=== PATIENT | male | born 1940 | race Asian ===

== ENCOUNTER 2022-02-16 19:16 | Emergency (ER) | payer OTHER ==
[~2022-02-16] VITALS: Ht 167.6 cm; Wt 77.0 kg
[~2022-02-16 19:16] MED LIST: ASPI-1444 PO; ATOR20TA86 PO; BISO5TAB33 PO; CALC600T2 PO; DUTA.5 PO; FURO20 PO; LOSA-382 PO; METF-1211 PO; MULT1TAB PO; POTA25TA7 PO; PRAM0.258 PO; TERA5CAP4 PO
[2022-02-16] MEDS ORDERED: ATOR10TA PO (19:33)
[2022-02-16] MEDS ORDERED: DUTA0.5C37 PO (19:41)
[2022-02-16] MEDS ORDERED: MULT-1259 PO (19:41)
[2022-02-16] MEDS ORDERED: METF-81 PO (19:41)
[2022-02-16] MEDS ORDERED: CHOL400T4 PO (19:41)
[2022-02-16] MEDS ORDERED: CARV25TA32 PO (19:41)
[2022-02-16 20:23] LABS: BASOPHILS % (AUTO) 0.7 % (0.0-2.0); EOSINOPHILS % (AUTO) 3.7 % (1.0-6.0); HEMATOCRIT 42.1 % (41-53); HEMOGLOBIN 13.9 g/dL (13.5-17.5); LYMPHOCYTES # (AUTO) 2.3 K/uL (1.0-4.8); LYMPHOCYTES % (AUTO) 39.3 % (22.0-44.0); MEAN CORPUSCULAR HEMOGLOBIN 31.8 pg (26.0-34.0); MEAN CORPUSCULAR VOLUME 96 fL (80-100); MONOCYTES # (AUTO) 0.4 K/uL (0.1-1.0); MONOCYTES % (AUTO) 7.1 % (2.0-9.0); NEUTROPHILS # (AUTO) 2.9 K/uL (1.8-7.7); NEUTROPHILS % (AUTO) 49.2 % (40.0-70.0); PLATELET COUNT (AUTO) 125 K/uL (150-450); RED BLOOD CELL COUNT(AUTO) 4.36 MIL/uL (4.50-5.90)
[2022-02-16 20:33] LABS: ANION GAP 4 mmol/L (8-16); CARBON DIOXIDE 29 mmol/L (22-29); CHLORIDE 105 mmol/L (98-107); CREATININE 1.02 mg/dL (0.60-1.30); GLUCOSE,RANDOM 111 mg/dL (70-110); POTASSIUM 3.9 mmol/L (3.5-5.1); SODIUM SERUM 138 mmol/L (136-145); UREA NITROGEN, BLOOD 15 mg/dL (7-18)
[2022-02-16 20:38] VITALS: BP 214/88
[2022-02-16 20:38] LABS: GLOMERULAR FILTR. RATE CALC > 60 mL/min (>60)
[2022-02-16 20:39] LABS: ALANINE AMINOTRANSFERASE 22 U/L (12-78); ALBUMIN 3.9 g/dL (3.4-5.0); ALKALINE PHOSPHATASE 108 U/L (46-116); ASPARTATE AMINOTRANSFERASE 18 U/L (15-37); BILIRUBIN,TOTAL 0.6 mg/dL (0.1-1.0); TOTAL PROTEIN, SERUM 7.1 g/dL (6.4-8.2)
== END 2022-02-16 20:57 | disposition home or self-care (01) ==
LOC: EMS 19:18
DX: I10 Essential (primary) hypertension (principal); E11.9 Type 2 diabetes mellitus without complications; N40.0 Benign prostatic hyperplasia without lower urinary tract symptoms; G20 Parkinson's disease; Z98.890 Other specified postprocedural states
CPT/HCPCS: 71045; 80053; 84484; 85025; 93005; 99285; 36415-L1; 36415-TC

== ENCOUNTER 2022-02-18 13:22 | Emergency (ER) | payer MEDICARE, OTHER ==
[~2022-02-18] VITALS: Ht 165.1 cm; Wt 81.8 kg
[~2022-02-18 13:22] MED LIST changes: +ATOR10TA PO; -ATOR20TA86 PO; -BISO5TAB33 PO; -CALC600T2 PO; +CARV25TA32 PO; +CHOL400T4 PO; -DUTA.5 PO; +DUTA0.5C37 PO; -FURO20 PO; -METF-1211 PO; +METF-81 PO; +MULT-1259 PO; -MULT1TAB PO; -POTA25TA7 PO; -PRAM0.258 PO
[2022-02-18 15:04] LABS: BASOPHILS % (AUTO) 0.4 % (0.0-2.0); EOSINOPHILS % (AUTO) 1.6 % (1.0-6.0); HEMATOCRIT 43.6 % (41-53); HEMOGLOBIN 14.6 g/dL (13.5-17.5); LYMPHOCYTES # (AUTO) 2.1 K/uL (1.0-4.8); LYMPHOCYTES % (AUTO) 26.2 % (22.0-44.0); MEAN CORPUSCULAR HEMOGLOBIN 32.4 pg (26.0-34.0); MEAN CORPUSCULAR HGB CONC 33.6 G/dL (31.0-37.0); MEAN CORPUSCULAR VOLUME 97 fL (80-100); MONOCYTES # (AUTO) 0.4 K/uL (0.1-1.0); MONOCYTES % (AUTO) 4.8 % (2.0-9.0); NEUTROPHILS # (AUTO) 5.4 K/uL (1.8-7.7); PLATELET COUNT (AUTO) 130 K/uL (150-450); RED BLOOD CELL COUNT(AUTO) 4.51 MIL/uL (4.50-5.90); RED CELL DISTRIBUTION WIDTH 13.9 % (11.5-14.5)
[2022-02-18 15:08] LABS: ANION GAP 9 mmol/L (8-16); CALCIUM, TOTAL 9.4 mg/dL (8.8-10.5); CARBON DIOXIDE 27 mmol/L (22-29); CHLORIDE 102 mmol/L (98-107); CREATININE 1.01 mg/dL (0.60-1.30); GLUCOSE,RANDOM 122 mg/dL (70-110); POTASSIUM 3.8 mmol/L (3.5-5.1); SODIUM SERUM 138 mmol/L (136-145); UREA NITROGEN, BLOOD 19 mg/dL (7-18)
[2022-02-18 15:09] LABS: GLOMERULAR FILTR. RATE CALC > 60 mL/min (>60)
[2022-02-18 15:14] LABS: ALANINE AMINOTRANSFERASE 22 U/L (12-78); ALKALINE PHOSPHATASE 107 U/L (46-116); ASPARTATE AMINOTRANSFERASE 20 U/L (15-37); BILIRUBIN,TOTAL 0.8 mg/dL (0.1-1.0); TOTAL PROTEIN, SERUM 7.3 g/dL (6.4-8.2)
[2022-02-18 15:28] LABS: B-TYPE NATRIURETIC PEPTIDE 24 pg/mL (0-100)
[2022-02-18 16:30] VITALS: BP 146/77
== END 2022-02-18 17:01 | disposition home or self-care (01) ==
LOC: EMS 13:46
DX: R55 Syncope and collapse (principal); E11.9 Type 2 diabetes mellitus without complications; I11.9 Hypertensive heart disease without heart failure; N40.0 Benign prostatic hyperplasia without lower urinary tract symptoms; G20 Parkinson's disease; Z98.890 Other specified postprocedural states
CPT/HCPCS: 71045; 80053; 82962; 83880; 84484; 85025; 93005; 99285; 36415-L1; 36415-TC

== ENCOUNTER 2022-05-07 14:46 | Inpatient (IN) | payer MEDICARE, OTHER ==
[~2022-05-07] VITALS: Ht 167.6 cm; Wt 69.0 kg
[2022-05-07 15:50] LABS: CALCIUM, TOTAL 8.8 mg/dL (8.8-10.5); CREATININE 1.25 mg/dL (0.60-1.30); POTASSIUM 4.4 mmol/L (3.5-5.1)
[2022-05-07 15:56] LABS: ALBUMIN 3.6 g/dL (3.4-5.0); BASOPHILS % (AUTO) 0.4 % (0.0-2.0); BILIRUBIN,TOTAL 0.5 mg/dL (0.1-1.0); EOSINOPHILS % (AUTO) 1.8 % (1.0-6.0); HEMATOCRIT 38.3 % (41-53); HEMOGLOBIN 12.5 g/dL (13.5-17.5); LYMPHOCYTES # (AUTO) 2.1 K/uL (1.0-4.8); LYMPHOCYTES % (AUTO) 25.6 % (22.0-44.0); MEAN CORPUSCULAR HEMOGLOBIN 31.2 pg (26.0-34.0); MEAN CORPUSCULAR HGB CONC 32.7 G/dL (31.0-37.0); MEAN CORPUSCULAR VOLUME 95 fL (80-100); MONOCYTES # (AUTO) 0.4 K/uL (0.1-1.0); MONOCYTES % (AUTO) 4.8 % (2.0-9.0); NEUTROPHILS # (AUTO) 5.6 K/uL (1.8-7.7); NEUTROPHILS % (AUTO) 67.4 % (40.0-70.0); PLATELET COUNT (AUTO) 118 K/uL (150-450); RED BLOOD CELL COUNT(AUTO) 4.02 MIL/uL (4.50-5.90); RED CELL DISTRIBUTION WIDTH 13.2 % (11.5-14.5); TOTAL PROTEIN, SERUM 6.8 g/dL (6.4-8.2)
[2022-05-07] MEDS ORDERED: DEXTROSE 50%-WATER 25 GM/50 ML SYRINGE IVP PRN (17:00)
[2022-05-07] MEDS ORDERED: INSULIN LISPRO 100 UNITS/ML SQ PRN (17:00)
[2022-05-07] MEDS ORDERED: ACETAMINOPHEN 325 MG TABLET PO PRN (17:00)
[2022-05-07] MEDS ORDERED: LORA10TA7 PO (17:09)
[2022-05-07] MEDS ORDERED: SERT-438 PO (17:09)
[2022-05-07] MEDS ORDERED: DONE-51 PO (17:09)
[2022-05-07] MEDS ORDERED: PRAM0.258 PO (17:09)
[2022-05-07] MEDS ORDERED: MIRT7.5T11 PO (17:09)
[2022-05-07] MEDS ORDERED: AMLO5TAB66 PO (17:09)
[2022-05-07 18:12] LABS: APPEARANCE,URINE CLEAR (CLEAR); BILIRUBIN,URINE NEGATIVE (NEGATIVE); GLUCOSE, URINE (UA) NEGATIVE (NEGATIVE); KETONES,URINE NEGATIVE (NEGATIVE); LEUKOCYTE ESTERASE ,URINE NEGATIVE (NEGATIVE); NITRATE,URINE NEGATIVE (NEGATIVE); OCCULT BLOOD,URINE NEGATIVE (NEGATIVE); PH,URINE 5.5 (5.0-8.0); PROTEIN,URINE NEGATIVE (NEGATIVE); SPECIFIC GRAVITIY, URINE 1.014 (1.003-1.030); UROBILINOGEN,URINE <=1.0 mg/dL (<=1.0)
[2022-05-07 18:27] LABS: BACTERIA,URINE None Seen /HPF (None Seen); RBC,URINE None Seen /HPF (0-2); SQUAMOUS EPITHELIAL CELL,UR None Seen /LPF (None Seen); WBC,URINE None Seen /HPF (0-5)
[2022-05-07 19:16] LABS: GLUCOSE,POINT OF CARE 110 MG/DL (70-110)
[2022-05-07] MEDS: LOSARTAN POTASSIUM 25 MG TABLET PO SCH (22:12)
[2022-05-07] MEDS: CARVEDILOL 6.25 MG TABLET PO SCH (22:12)
[2022-05-07] MEDS: DOCUSATE SODIUM 100 MG CAPSULE PO SCH (22:12)
[2022-05-07] MEDS: HEPARIN SODIUM,PORCINE 5,000 UNITS/ML VIAL SQ SCH (23:05)
[2022-05-08 02:06] LABS: GLUCOSE,POINT OF CARE 96 MG/DL (70-110)
[2022-05-08 02:50] LABS: COVID AG,FIA SOURCE NASAL SWAB
[2022-05-08 04:09] VITALS: BP 170/77
[2022-05-08 07:39] VITALS: BP 149/70
[2022-05-08 08:26] LABS: GLUCOMETER DEV NAME(LOC) 5S.1B; GLUCOSE,POINT OF CARE 102 MG/DL (70-110)
[2022-05-08] MEDS ORDERED: FAMOTIDINE 20 MG TABLET PO SCH (09:00)
[2022-05-08] MEDS ORDERED: ATORVASTATIN CALCIUM 20 MG TABLET PO SCH (09:00)
[2022-05-08] MEDS ORDERED: ASPIRIN 81 MG CHEWABLE TABLET PO SCH (09:00)
[2022-05-08] MEDS: DOCUSATE SODIUM 100 MG CAPSULE PO SCH (09:00)
[2022-05-08] MEDS ORDERED: CARV6 PO (10:03)
[2022-05-08] MEDS ORDERED: AmLODIPine BESYLATE 5 MG TABLET PO SCH (10:15)
[2022-05-08] MEDS: HEPARIN SODIUM,PORCINE 5,000 UNITS/ML VIAL SQ SCH (10:21)
[2022-05-08] MEDS: LOSARTAN POTASSIUM 25 MG TABLET PO SCH (10:23)
[2022-05-08] MEDS: CARVEDILOL 6.25 MG TABLET PO SCH (10:23)
[2022-05-08 11:20] VITALS: BP 154/73
[2022-05-08 19:51] LABS: GLUCOMETER DEV NAME(LOC) 5S.1B; GLUCOSE,POINT OF CARE 102 MG/DL (70-110)
== END 2022-05-08 14:30 | disposition home health service (06) | DRG 310 ==
LOC: EMS 14:46 → AHU 23:34 → 5N 05-08 02:47
PROVIDERS: ADMIT Internal Medicine; ATTEND Internal Medicine
DX: R00.1 Bradycardia, unspecified (principal); N40.0 Benign prostatic hyperplasia without lower urinary tract symptoms; G20 Parkinson's disease; E11.9 Type 2 diabetes mellitus without complications; T46.5X5A Adverse effect of other antihypertensive drugs, initial encounter; R41.89 Other symptoms and signs involving cognitive functions and awareness; Z20.822 Contact with and (suspected) exposure to COVID-19; I11.0 Hypertensive heart disease with heart failure; I50.9 Heart failure, unspecified; Z85.46 Personal history of malignant neoplasm of prostate; Z95.5 Presence of coronary angioplasty implant and graft; Z83.3 Family history of diabetes mellitus; Z82.49 Family history of ischemic heart disease and other diseases of the circulatory system; Y92.89 Other specified places as the place of occurrence of the external cause
CPT/HCPCS: 70450; 71045; 76700; 80053; 81001; 82962; 83880; 84484; 85025; 93005; 97116; 97161; 97530; 99285; G0378; J1644; 36415-L1; 36415-TC